=== PATIENT | male | born 1960 | race Caucasian/White ===

== ENCOUNTER 2024-03-14 08:57 | Outpatient (CLI) | payer BC, SELFPAY ==
--- NOTE | 2024-03-14 10:41 | ECG_ITS ---
Test Date: 2024-03-14 10:49:04 Measurements Intervals [place] Rate: 57 P: 32 TN: 160 QRS: -12 QRSD: 97 T: 31 QT: 428 QTc: 419 Interpretive Statements SINUS BRADYCARDIA INFERIOR MYOCARDIAL INFARCTION , PROBABLY OLD [40+ ms Q WAVE AND/OR ST/T ABNORMALITY IN II/aVF] No previous ECG available for comparison Electronically Signed On 03-14-2024 14:51:09 CDT by Andreia Lynch M.D.
== END 2024-03-14 08:58 | disposition home or self-care (01) ==
PROVIDERS: PCP Internal Medicine
DX: Z01.812 Encounter for preprocedural laboratory examination (principal); R00.1 Bradycardia, unspecified; R94.31 Abnormal electrocardiogram [ECG] [EKG]
CPT/HCPCS: 93005